=== PATIENT | female | born 1990 | race Caucasian/White ===

== ENCOUNTER 2019-08-20 11:01 | Emergency (ER) | payer OTHER ==
[~2019-08-20] VITALS: Ht 162.6 cm; Wt 78.0 kg
[2019-08-20 11:14] VITALS: BP 140/77
[2019-08-20 13:35] VITALS: BP 135/77
== END 2019-08-20 13:36 | disposition home or self-care (01) ==
LOC: MED 11:01
DX: R05 Cough (principal); J02.9 Acute pharyngitis, unspecified; H57.89 Other specified disorders of eye and adnexa
CPT/HCPCS: 71045; 99283; Q0092

== ENCOUNTER 2021-05-23 02:09 | Emergency (ER) | payer OTHER ==
[~2021-05-23] VITALS: Ht 162.6 cm; Wt 72.6 kg
[2021-05-23 02:20] VITALS: BP 127/74
--- NOTE | 2021-05-23 02:20 | NUR ---
to bed ambulatory
--- NOTE | 2021-05-23 02:59 | NUR ---
30 Y/O FEMALE BIB SELF FOR CHEST PAIN WHILE IN THE SHOWER 1.5 HRS AGO. PT STATES SHE FELT A PRESSURE AND SOB DURING THE TIME OF THE EVENT. DENIES DIZZINESS, COUGH, SIMMS, SOB AT THIS TIME. PT IS A/O4, GCS:15, UNLABOREDED BREATHING, AN STEADY GAIT. PT IS RESTING SUPINE IN BED IN LOWEST SETTING. NO PMH NKDA DENIES MEDS SURGERIES:
[2021-05-23] MEDS ORDERED: ASPIRIN 325 MG TAB PO ONE (03:05)
[2021-05-23] MEDS ORDERED: NITROGLYCERIN 0.4 MG TAB SL ONE (03:05)
[2021-05-23 03:28] LABS: BASOPHILS % (AUTO) 0.6 % (0.0-2.0); EOSINOPHILS # (AUTO) 0.2 K/uL (0-0.4); HEMATOCRIT 37.8 % (36-48); HEMOGLOBIN 13.2 g/dL (12.0-16.0); LYMPHOCYTES # (AUTO) 2.4 K/uL (2.5-16.5); LYMPHOCYTES % (AUTO) 35.8 % (20.5-51.1); MEAN CORPUSCULAR HEMOGLOBIN 31 pg (27-31); MEAN CORPUSCULAR HGB CONC 35 g/dL (33-37); MEAN CORPUSCULAR VOLUME 87.7 fL (80-94); MONOCYTES # (AUTO) 0.6 K/uL (0.8-1.0); MONOCYTES % (AUTO) 9.4 % (1.7-9.3); NEUTROPHILS # (AUTO) 3.5 K/uL (1.8-7.7); NEUTROPHILS % (AUTO) 51.2 % (42.2-75.2); PLATELET COUNT (AUTO) 311 K/uL (140-450); RED BLOOD CELL COUNT(AUTO) 4.31 MIL/uL (4.20-5.40); RED CELL DISTRIBUTION WIDTH 13.3 % (11.6-13.7); WHITE BLOOD COUNT (AUTO) 6.8 K/uL (4.8-10.8)
[2021-05-23 03:51] LABS: ALBUMIN 3.6 g/dL (3.4-5.0); ANION GAP 12.9 (8-16); CARBON DIOXIDE 25.5 mmol/L (21-32); CREATININE 0.6 mg/dL (0.6-1.3); POTASSIUM 3.4 mmol/L (3.5-5.1); TOTAL BILIRUBIN 0.8 mg/dL (0.0-1.0)
[2021-05-23 04:55] VITALS: BP 114/71
--- NOTE | 2021-05-23 04:55 | NUR ---
Patient discharged with v/s stable. Written and verbal after care instructions given and explained. Patient verbalized understanding. with to car. All questions addressed prior to discharge. Advised to follow up with PMD. Patient discharged with v/s stable. Written and verbal after care instructions given and explained. Patient alert, oriented and verbalized understanding of instructions. Ambulatory with steady gait. All questions addressed prior to discharge. ID band removed. Patient advised to follow up with PMD. Rx of PANTOPRAZOLE given. Patient educated on indication of medication including possible reaction and side effects. Opportunity to ask questions provided and answered. A/OX4, VSS, STEADY GAIT, UNLABORED BREATHING, CALM DEMEANOR.
[2021-05-23] MEDS ORDERED: PANT40EC PO (06:35)
== END 2021-05-23 04:55 | disposition home or self-care (01) ==
LOC: MED 02:09
DX: R07.89 Other chest pain (principal)
CPT/HCPCS: 36415; 71045; 80053; 84484; 85025; 93005; 99285; Q0092

== ENCOUNTER 2022-06-06 10:48 | Emergency (ER) | payer OTHER ==
[~2022-06-06] VITALS: Ht 157.5 cm; Wt 65.8 kg
[~2022-06-06 10:48] MED LIST: PANT40EC PO
[2022-06-06 10:53] VITALS: BP 130/87
--- NOTE | 2022-06-06 12:00 | NUR ---
Pt ambulated to bed 08 with steady/even gait.
[2022-06-06] MEDS ORDERED: IBUP-2213 PO (12:22)
--- NOTE | 2022-06-06 12:36 | NUR ---
Patient discharged with v/s stable. Written and verbal after care instructions given and explained for Laryngitis. Patient alert, oriented and verbalized understanding of instructions. Ambulatory with steady gait. All questions addressed prior to discharge. ID band removed. Patient advised to follow up with PMD. Rx of Ibuprofen given. Patient educated on indication of medication including possible reaction and side effects. Opportunity to ask questions provided and answered.
== END 2022-06-06 12:36 | disposition home or self-care (01) ==
LOC: MED 10:48
DX: R49.0 Dysphonia (principal); Z20.822 Contact with and (suspected) exposure to COVID-19; J02.9 Acute pharyngitis, unspecified; Z79.899 Other long term (current) drug therapy
CPT/HCPCS: 87081; 99283